=== PATIENT | female | born 1960 | race Caucasian/White ===

== ENCOUNTER → 2017-05-16 | Outpatient (REF) | payer BC ==
[~2017-05-16] MED LIST: CALCTAB93 PO; MULTTAB4 PO; OMEP40CA2 PO; VITAMIN D PO
[2017-05-16 12:28] LABS: PERCENT SATURATION 35.5 % (13.2-37.4)
== END ==
LOC: M LAB REF 11:53
PROVIDERS: ATTEND Internal Medicine
DX: R53.83 Other fatigue (principal)

== ENCOUNTER → 2017-06-11 | Outpatient (REF) | payer BC ==
[2017-06-11 18:40] LABS: VITAMIN B12 LEVEL 423 PG/ML (247-911)
[2017-06-12 07:58] LABS: CONTROL LINE MONO INT CTR LINE PRESENT
[2017-06-14 00:07] LABS: Lyme Disease IgG/IgM Antibodie <0.91 ISR (0.00-0.90); Lyme Disease IgM Ab Quantitati <0.80 index (0.00-0.79)
== END ==
LOC: M LAB REF 17:33
PROVIDERS: ATTEND Nurse Practitioner Family
DX: R53.81 Other malaise (principal)

== ENCOUNTER → 2019-03-25 | Outpatient (CLI) | payer BC ==
[2019-03-25 07:54] LABS: BASO % 0.9 % (0.0-1.0); EOS % 0.9 % (0.0-3.0); HEMATOCRIT 42.8 % (36.0-47.0); HEMOGLOBIN 14.1 g/dl (12.0-15.5); LYMPH # 1.3 10^3/uL (1.5-4.5); LYMPH % 27.2 % (24.0-44.0); MEAN CORPUSCULAR HEMOGLOBIN 29.8 pg (27.0-33.0); MEAN CORPUSCULAR HGB CONC 32.9 g/dl (32.0-36.5); MEAN CORPUSCULAR VOLUME 90.5 fl (80.0-96.0); MONO # 0.4 10^3/uL (0.0-0.8); MONO % 9.3 % (0.0-5.0); NEUTROPHILS # 2.8 10^3/uL (1.8-7.7); PLATELET COUNT, AUTOMATED 172 10^3/uL (150-450); RED BLOOD COUNT 4.73 10^6/uL (4.00-5.40); WHITE BLOOD COUNT 4.6 10^3/uL (4.0-10.0)
--- NOTE | 2019-03-25 07:54 | ECGEPIP ---
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
[2019-03-25 08:11] LABS: BLOOD UREA NITROGEN 18 MG/DL (7-18); CALCIUM LEVEL 8.7 MG/DL (8.5-10.1); CARBON DIOXIDE LEVEL 29 MEQ/L (21-32); CHLORIDE LEVEL 106 MEQ/L (98-107); CREATININE FOR GFR 0.73 MG/DL (0.55-1.30); GLOMERULAR FILTRATION RATE > 60.0 (>51); GLUCOSE, FASTING 112 MG/DL (70-100); POTASSIUM SERUM 3.9 MEQ/L (3.5-5.1); SODIUM LEVEL 143 MEQ/L (136-145)
== END ==
LOC: M LAB 07:16
PROVIDERS: ATTEND Podiatrist
DX: Z01.810 Encounter for preprocedural cardiovascular examination (principal); M79.672 Pain in left foot; M72.2 Plantar fascial fibromatosis

== ENCOUNTER 2019-04-04 08:26 | Day surgery (SDC) | payer BC ==
[~2019-04-04] VITALS: Ht 160 cm; Wt 70.8 kg
[~2019-04-04 08:26] MED LIST changes: +LIDOCAINE 2% INJ 100 MG/5 ML SDV (FOR ANES.) As Ordered ONE; +LR 1,000 ML IV ONE; +MIDAZOLAM INJ 2 MG/2 ML VIAL (J2250) As Ordered ONE; +PROPOFOL 200 MG/20 ML VIAL As Ordered ONE; +fentaNYL 100 MCG/2 ML INJECTION (J3010) As Ordered ONE
[2019-04-04] MEDS ORDERED: BUPIVACAINE HCL 0.5% 10 ML VIAL As Ordered ONE ×2 (09:27→10:21)
[2019-04-04] MEDS ORDERED: dexameTHASONE 4 MG/ML 1ML VIAL (J1100) As Ordered ONE ×2 (09:27→10:29)
[2019-04-04] MEDS ORDERED: BACITRACIN PWD 50,000 UNITS VIAL As Ordered ONE (09:28)
[2019-04-04] MEDS ORDERED: LIDOCAINE 2% MDV 20 ML VIAL As Ordered ONE (09:28)
[2019-04-04] MEDS ORDERED: NEOSPORIN GU IRRIG 20 ML VIAL As Ordered ONE (09:28)
[2019-04-04] MEDS ORDERED: ONDANSETRON 4MG/2ML VIAL (J2405) As Ordered ONE (10:29)
[2019-04-04] MEDS ORDERED: KETOROLAC 60 MG/2 ML VIAL (J1885) As Ordered ONE (10:29)
[2019-04-04 12:00] VITALS: BP 133/62
[2019-04-04] MEDS ORDERED: LR 1,000 ML IV SCH (12:00)
[2019-04-04] MEDS ORDERED: PERCOCET 5MG/325MG TAB PO PRN (12:00)
[2019-04-04] MEDS ORDERED: METOCLOPRAMIDE INJ 10MG/2ML VIAL (J2765) IV PRN (12:00)
[2019-04-04] MEDS ORDERED: fentaNYL 100 MCG/2 ML INJECTION (J3010) IV PRN (12:00)
[2019-04-04] MEDS ORDERED: ONDANSETRON 4MG/2ML VIAL (J2405) IV PRN (12:00)
--- NOTE | 2019-04-04 16:57 | RO ---
DATE OF PROCEDURE: 04/04/2019 PREOPERATIVE DIAGNOSES: Plantar fasciitis left foot. POSTOPERATIVE DIAGNOSES: Plantar fasciitis left foot. OPERATIVE PROCEDURE: SURGEON: Enzo Dumas DPM DIRECTOR OF RECRUITING: None ANESTHESIA: IRRIGATION: Dilute bacitracin, neomycin and polymyxin B solution. HEMOSTASIS: Ankle pneumatic tourniquet at 250 mmHg for 10 minutes on the left ankle. IMPLANTS USED: None. DESCRIPTION OF OPERATION: On 04/04/2019, this 58-year-old female was taken from her hospital room to the operating room and placed on the operating room table in the supine position. Following the induction of IV sedation and local and regional anesthesia, the left lower extremity was prepped and draped in the usual aseptic manner. Attention was directed to the patient's left foot whereon the medial surface of the foot a 5 mm vertical incision was placed. The skin was retracted and utilizing dissection scissors, dissection was carried down just inferior to the plantar fascia utilizing a Arthrex center line endoscopic plantar fasciotomy blade directed in a superior direction. The plantar fascia could be visualized. Three-quarters of the plantar fascia was then transected down to the level of the flexor digitorum brevus muscle belly which was visible. The endoscope with fasciotomy blade was then removed. The wound was flushed with copious amounts of dilute bacitracin, neomycin and polymyxin B solution. 4 mg of dexamethasone sodium phosphate was instilled into the wound and the wound was closed utilizing #4-0 Vicryl in a simple interrupted type fashion for the deep layer and the skin was closed with #4-0 Prolene in a simple interrupted and horizontal mattress type fashoin. Attention was directed toward bandaging with sterile compressive bandage applied consisting of Adaptic, 4 x 4s, 4 x 4 splints, Deedee, Kerlix and Coban. The ankle pneumatic tourniquet was rapidly deflated. Instantaneous capillary refill time was noted in digits 1 through 5 of the patients left foot. The patient having apparently tolerated the surgical procedure well, was taken from the operating room to the recovery room for further management by the anesthesia department.
== END 2019-04-04 12:10 | disposition home or self-care (01) ==
LOC: M SDC 08:26
PROVIDERS: ATTEND Podiatrist
DX: M72.2 Plantar fascial fibromatosis (principal); R73.03 Prediabetes; Z85.3 Personal history of malignant neoplasm of breast
CPT/HCPCS: 29893; J0690; J1100; J1885; J2250; J2405; J3010

== ENCOUNTER → 2020-10-31 | Outpatient (CLI) | payer BC ==
[~2020-10-31] MED LIST changes: -LIDOCAINE 2% INJ 100 MG/5 ML SDV (FOR ANES.) As Ordered ONE; -LR 1,000 ML IV ONE; -MIDAZOLAM INJ 2 MG/2 ML VIAL (J2250) As Ordered ONE; -PROPOFOL 200 MG/20 ML VIAL As Ordered ONE; -fentaNYL 100 MCG/2 ML INJECTION (J3010) As Ordered ONE
--- NOTE | 2020-10-31 16:07 | REP ---
INDICATION: CUTANEOUS ABSCESS OF FACE. COMPARISON: None. TECHNIQUE: Three views of the mandible and overlying soft tissue structures FINDINGS: Limited examination without obvious abnormality noted by radiographic evaluation. IMPRESSION: Limited examination without obvious abnormality noted by radiographic evaluation. No obvious abnormality in the soft tissues at the site of marker. <Electronically signed by Den Hyman > 10/31/20 [id number]
== END ==
LOC: M WUC 14:51
PROVIDERS: ATTEND Physician Assistant
DX: L02.01 Cutaneous abscess of face (principal)

== ENCOUNTER → 2020-11-16 | Outpatient (CLI) | payer BC ==
--- NOTE | 2020-11-16 09:30 | REPVR ---
PROCEDURE INFORMATION: Exam: CT Maxillofacial Without Contrast Exam date and time: 11/16/2020 9:16 AM Age: 60 years old Clinical indication: Jaw pain; Additional info: Swelling of mandible TECHNIQUE: Imaging protocol: Computed tomography images of the face without contrast. Radiation optimization: All CT scans at this facility use at least one of these dose optimization techniques: automated exposure control; mA and/or kV adjustment per patient size (includes targeted exams where dose is matched to clinical indication); or iterative reconstruction. COMPARISON: CR MANDIBLE COMPLETE 10/31/2020 3:04 PM FINDINGS: Orbital cavity: Orbits are normal. Globes are unremarkable. Bones/joints: No acute fracture. Paranasal sinuses: Normal. No air-fluid levels. Soft tissues: Unremarkable. Lymph nodes: Adjacent to the left mandibular angle, there is a soft tissue density measuring 1.2 x 1.5 mm with minimal surrounding haziness likely representing enlarged lymph node. Findings may represent inflammation versus infection, and less likely neoplastic process, clinical correlation is recommended. Few other prominent bilateral cervical chain lymph nodes are seen. Submandibular/Parotid glands:Mild asymmetrical enlargement of the left submandibular gland with mild inflammation between the enlarged left lymph node and submandibular gland. Bilateral parotid glands and right submandibular gland are unremarkable. IMPRESSION: Mild asymmetrical enlargement of the left submandibular gland with mild inflammation between the enlarged left lymph node and submandibular gland. Findings may represent mild sialoadenitis or reactive inflammation secondary to enlarged inflamed adjacent lymph node. Adjacent to the left mandibular angle, there is a soft tissue density measuring 1.2 x 1.5 mm with minimal surrounding haziness likely representing enlarged lymph node. Findings may represent inflammation versus infection, and less likely neoplastic process, clinical correlation is recommended. Few other prominent bilateral cervical chain lymph nodes are seen. Electronically signed by: Asia Soliz On 11/16/2020 09:31:09 AM
== END ==
LOC: M RAD 08:56
PROVIDERS: ATTEND Otolaryngology
DX: R22.1 Localized swelling, mass and lump, neck (principal)